=== PATIENT | female | born 1970 | race Hispanic/Latino ===

== ENCOUNTER → 2017-06-12 | Day surgery (SDC) | payer BC ==
[~2017-06-12] MED LIST: BUPIVACAINE HCL 0.5% INJ 30 ML VIAL INJ ONE; CEFAZOLIN SOD 2 GM/D5W 50ML 50 ML IV ONE; DEXAMETHASONE SOD PHOS INJ 4 MG/ML VIAL ONE; FENTANYL CITRATE/PF 100MCG/2 ML INJ ONE; KETOROLAC TROMETHAMINE 30 MG/ML VIAL ONE; LIDOCAINE HCL 2% LOCAL INJ 5 ML SDV VIAL INJ ONE; MIDAZOLAM HCL 2 MG/2 ML VIAL ONE; ONDANSETRON HCL INJ 2 MG/ML VIAL ONE; PHENYLEPHRINE HCL 1% 10 MG/ML VIAL ONE; PROPOFOL IV EMULSION 10 MG/ML 20 ML VIAL ONE; SEVOFLURANE INHAL SOLN 250 ML PEN BTL ONE
--- NOTE | 2017-06-13 00:03 | Operative Report ---
DATE OF PROCEDURE: June 12, 2017 PREOPERATIVE DIAGNOSIS: Right ring finger mass. POSTOPERATIVE DIAGNOSIS: Right ring finger mass. OPERATIONS/PROCEDURES PERFORMED 1. Patient underwent an excision of the right ring finger mass. 2. Release of the A1 venus for the right ring finger. SOFTWARE DEVELOPMENT TEST ENGINEER: None. ANESTHESIA: General endotracheal intubation anesthesia. IV FLUIDS: Per the anesthesia record. DESCRIPTION OF PROCEDURE: Ms. Vazquez was taken to the operating room, placed supine on the operating table. Following induction of general anesthesia as well as endotracheal intubation, the patient's right upper extremity was examined under anesthesia. She was found to have a palpable mass at the level just proximal to the metacarpal phalangeal joint for the ring finger. This mass was slightly eccentric to the ulna side of the metacarpal. This was easily palpable in the soft tissues in the hand. Patient's upper extremity was prepped and draped in standard surgical fashion. The case was begun by creating an incision overlying the mass. This incision was carried through the skin only. Blunt dissection used to deepen incision and the mass was found to be arising from the A1 venus. It had a consistency and appearance of an engorged ganglion cyst. The mass was excised with a portion of the A1 venus. The specimen was passed to back table to be identified by pathology. The A1 venus was then opened both proximally and distally. The finger was placed in range of motion and the tendon was found to have no abnormalities. There were no other abnormal growths in the region. The wound was copiously irrigated. The incision was closed in a multilayer fashion. Sterile dressings were applied. The wound was closed in a multilayer fashion. The wound was then provided a sterile dressing and the patient was awakened, taken to postanesthesia care unit in stable condition. Job#: [id number]
== END | disposition home or self-care (01) ==
LOC: OR 05:27
PROVIDERS: ATTEND Specialist
DX: M67.441 Ganglion, right hand (principal); F41.9 Anxiety disorder, unspecified
CPT/HCPCS: 26160; 88304; J1100; J1885; J2001; J2250; J2370; J2405